=== PATIENT | male | born 2000 | race Caucasian/White ===

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

== ENCOUNTER 2022-03-23 15:33 | Emergency (ER) | payer OTHER, SELFPAY ==
[2022-03-23] VITALS (15 sets, daily range): BP systolic 112–138; BP diastolic 65–84; PULSE 60–127; RESP 14–22; TEMP 36.7; O2SAT 95–100
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
[2022-03-23] MEDS: ondansetron 2 mg/ML SDV 2 mL 4 MG IVP (16:10)
[2022-03-23] MEDS: morphine 4 mg/mL SDV 1 mL IVP (16:10)
[2022-03-23] MEDS: ceFAZolin 2,000 MG in sodium chloride 0.9% (plus) 50 ML 100 MG IV (16:49)
[2022-03-23] MEDS: tetanus-dipt-pertussis 0.5 mL SDV IM (16:51)
[2022-03-23] MEDS: midazolam 1 mg/mL INJ 2 mL 2 MG (18:24)
[2022-03-23] MEDS: fentaNYL 50 mcg/mL INJ 2mL IVP (18:36)
[2022-04-11] MEDS: midazolam 1 mg/mL INJ 2 mL 2 MG IVP (11:43)
== END 2022-03-23 20:21 | disposition home or self-care (01) ==
PROVIDERS: Emergency Provider Emergency Medicine
DX: S68.125A Partial traumatic metacarpophalangeal amputation of left ring finger, initial encounter (principal); S62.613B Displaced fracture of proximal phalanx of left middle finger, initial encounter for open fracture; S62.637B Displaced fracture of distal phalanx of left little finger, initial encounter for open fracture; W20.8XXA Other cause of strike by thrown, projected or falling object, initial encounter
CPT/HCPCS: 12002; 12041; 26725; 73130; 90471; 90715; 96365; 96375; 99285; J0690; J2250; J2270; J2405; J3010; J3490